=== PATIENT | male | born 1945 ===

== ENCOUNTER 2023-11-23 01:13 | Outpatient (CLI) | payer MEDICARE, OTHER, SELFPAY ==
--- NOTE | 2023-11-23 | DI.US_ITS ---
Exam(s) US HERNIA EXAM: US HERNIA CLINICAL HISTORY: Umbilical hernia, K42.9. TECHNIQUE: Ultrasound was performed using standard protocol. COMPARISON: No exams were available for comparison FINDINGS: Sonographic assessment utilizing grayscale and color Doppler imaging was performed and targeted to th e area of clinical concern in the periumbilical region and left lower quadrant. No hernia is demonstrated. No edema in the abdominal wall or evidence of localized collection. IMPRESSION: No visible umbilical or left lower quadrant hernia. DATA REPOSITORY:
--- NOTE | 2023-11-23 | DI.US_ITS ---
Exam(s) US ABDOMEN EXAM: US ABDOMEN CLINICAL HISTORY: 6-day h/o LUQ pain, R10.12 TECHNIQUE: Ultrasound abdomen performed using standard protocol. COMPARISON: No exams were available for comparison FINDINGS: Exam somewhat limited by patient body habitus. LIVER: Partially obscured by bowel gas. Normal size and echogenicity. No focal liver lesions are s een. GALLBLADDER: 1.8 centimeter stone which appears to be stuck in the gallbladder neck.. No evidence of wall thickening. No gallbladder distention. No pericholecystic fluid identified. ZHENG'S SIGN: Negative. BILIARY SYSTEM: No intrahepatic or extrahepatic biliary ductal dilation. KIDNEYS: Kidneys are symmetric in size. Question of a 4 millimeter stone mid right kidney. No eviden ce of hydronephrosis. No renal mass or cyst identified. PANCREAS: Normal where visualized. SPLEEN: Not enlarged. ABDOMINAL AORTA AND IVC: Visualized portions normal caliber. ASCITES: None seen. IMPRESSION: 1.8 centimeter stone noted within gallbladder neck which is nonmobile. No findings to suggest acute cholecystitis. DATA REPOSITORY:
== END 2023-11-23 01:33 ==
PROVIDERS: Visit Provider Nurse Practitioner Family
DX: K42.9 Umbilical hernia without obstruction or gangrene (principal); K80.20 Calculus of gallbladder without cholecystitis without obstruction
CPT/HCPCS: 76857; 76700